=== PATIENT | female | born 1975 | race Caucasian/White ===

== ENCOUNTER 2017-10-16 20:13 | Emergency (ER) | payer SELFPAY ==
[2017-10-16 21:28] LABS: #Basophils 0.1 thou/uL (0.0-0.2); #Eosinphils 0.1 thou/uL (0.0-0.7); #Monocytes 0.5 thou/uL (0.11-0.59); #Neutrophils 3.4 thou/uL (1.40-6.50); %Basophils 1.5 % (0.0-1.0); %Eosinophils 1.8 % (0.0-10.0); %Lymphocytes 32.6 % (21.0-51.0); %Monocytes 8.6 % (0.0-10.0); %Neutrophils 55.5 % (42.0-75.0); Hemoglobin 12.3 g/dL (12.0-16.0); Mean Corpuscular HGB CONC 32.8 g/dL (32.0-36.0); Mean Corpuscular Hemoglobin 29.8 pg (27.0-31.0); Mean Platelet Volume 7.9 fL (7.4-10.4); Platelet Count 299 thou/uL (130-400); Red Blood Cell (RBC) Count 4.13 mill/uL (4.20-5.40); White Blood Cell (WBC) Count 6.1 thou/uL (4.8-10.8)
[2017-10-16 21:49] LABS: ALT (SGPT) 8 U/L (8-55); AST (SGOT) 16 U/L (5-34); Albumin 4.5 g/dL (3.5-5.0); Alkaline Phosphatase 74 U/L (40-150); Anion Gap 14 mmol/L (10-20); BUN (Urea Nitrogen) 8 mg/dL (7.0-18.7); Bilirubin, Total 0.2 mg/dL (0.2-1.2); Calc. Creatinine Clearance 0 mL/min (70-130); Calcium 10.1 mg/dL (7.8-10.44); Carbon Dioxide 27 mmol/L (22-29); Chloride 102 mmol/L (98-107); Estimated GFR-MDRD 83; Globulin 3.2 g/dL (2.4-3.5); Glucose 87 mg/dL (70-105); Lipase 9 U/L (8-78); Protein, Total 7.7 g/dL (6.0-8.3); Sodium 139 mmol/L (136-145)
[2017-10-16 21:52] LABS: Bilirubin Negative (Negative); Blood, Urine Negative (Negative); Clarity CLEAR (Clear); Glucose, Urine (Dipstick) Negative (Negative); Leukocyte Negative (Negative); Nitrite Negative (Negative); Protein, Urine (Dipstick) Negative (Neg-Trace); Specific Gravity, Urine 1.012 (1.002-1.036); Urobilinogen 0.2 mg/dL (0.2-1.0); pH, Urine 6.5 (5.0-9.0)
[2017-10-16 23:23] LABS: BHCG - Serum Negative (NEGATIVE); Pregs Control Background? CLEAR/WHITE (CLR/WHITE); Pregs Control Bar Appear? YES (CONTROL BAR)
[2017-10-17 00:02] LABS: Pregnancy Test - Urine (BHCG) Negative (Negative); Pregu Control Background? CLEAR/WHITE (CLR/WHITE); Pregu Control Bar Appear? YES (CONTROL BAR); Specific Gravity 1.012 (1.002-1.036)
--- NOTE | 2017-10-17 08:17 | ULT ---
PRELIMINARY REPORT/[facility]/EMERGENCY AFTER HOURS PROCEDURE: EXAM: US Abdomen Limited, Right Upper Quadrant EXAM DATE/TIME: 10/16/2017 11:54 PM CLINICAL HISTORY: 41 years old, female; Pain and signs and symptoms; Nausea; Abdominal pain; Localized; Right upper litzy drant (ruq) TECHNIQUE: Real-time ultrasound of the right upper quadrant with image documentation. COMPARISON: No relevant prior studies available. FINDINGS: Liver: Liver is normal in length with normal echogenicity. Normal appearing main portal vein flow. No intrahepatic bile duct dilation. Gallbladder: Gallbladder does not appear to contain stones. No evidence of gallbladder wall thickenin g. No evidence of pericholecystic fluid. Common bile duct: Common bile duct is normal in width at 2 mm. No stones. No dilation. Pancreas: Visualized portions of the pancreas appear normal. Right kidney: Right kidney appears normal. No stones. No hydronephrosis. Free fluid: No evidence of free fluid. IMPRESSION: No evidence gallstones, biliary ductal dilatation, gallbladder wall thickening or pericholecystic flu id. Thank you for allowing us to participate in the care of your patient. Dictated and Authenticated by: Lyssa Fatima MD 10/17/2017 12:36 AM Central Time ([place] & [place]) FINAL REPORT EMERGENT AFTER HOURS RIGHT UPPER QUADRANT ULTARSOUND: DATE: 10/16/17. HISTORY: Right upper quadrant abdominal pain and nausea. IMPRESSION: 1. No acute findings are seen on this right upper quadrant abdominal ultrasound examination. 2. No gallbladder calculi are seen, and the common duct is normal in caliber measuring 0.2 cm in shanel meter. 3. Findings are in agreement with the preliminary report by [facility]. POS: [facility]
--- NOTE | 2017-11-15 15:06 | EKG ---
Test Reason : EPIGASTRIC PAIN Blood Pressure : / mmHG Vent. Rate : 078 BPM Atrial Rate : 078 BPM P-R Int : 158 ms QRS Dur : 082 ms QT Int : 388 ms P-R-T Axes : 052 060 029 degrees QTc Int : 442 ms Sinus rhythm with Premature ventricular complexes or Fusion complexes Otherwise normal ECG Confirmed by ANDERSON WRAY, SHUKRI ([id number]), news copy editor BETO GARCIA ([id number]) on 11/15/2017 3:06:40 PM Referred By: Confirmed By:SHUKRI BARRON MD
== END 2017-10-17 01:07 | disposition home or self-care (01) ==
LOC: ERS 20:13
DX: R10.11 Right upper quadrant pain (principal); F17.210 Nicotine dependence, cigarettes, uncomplicated
CPT/HCPCS: 36415; 76705; 80053; 81003; 81025; 83690; 84703; 85025; 93005

== ENCOUNTER 2018-09-18 13:24 | Emergency (ER) | payer SELFPAY ==
[2018-09-18] MEDS ORDERED: Dexamethasone 10 MG/ML VIAL ONE (14:13)
--- NOTE | 2018-09-18 14:38 | RAD ---
CHEST TWO VIEWS: 09/18/2018 HISTORY: Sore throat. Headache. Rhinorrhea. Cough. COMPARISON: None. FINDINGS: No pneumothorax, pleural fluid, focal consolidation, or alveolar edema. Heart and mediastinal contou rs appear grossly unremarkable. IMPRESSION: No acute findings. POS: [facility]
== END 2018-09-18 14:48 | disposition home or self-care (01) ==
LOC: ERS 13:24
DX: J02.9 Acute pharyngitis, unspecified (principal); F17.210 Nicotine dependence, cigarettes, uncomplicated
CPT/HCPCS: 71046; J1100

== ENCOUNTER 2019-06-29 20:05 | Emergency (ER) | payer SELFPAY ==
[2019-06-29] MEDS ORDERED: Morphine 4 MG/ML VIAL ONE (21:00)
[2019-06-29] MEDS ORDERED: Ondansetron PF 4 MG/2 ML Vial ONE (21:00)
[2019-06-29 22:32] LABS: #Eosinphils 0.1 thou/uL (0.0-0.7); #Lymphocytes 1.6 thou/uL (1.20-3.40); #Monocytes 0.5 thou/uL (0.11-0.59); #Neutrophils 5.9 thou/uL (1.40-6.50); %Basophils 0.3 % (0.0-1.0); %Eosinophils 0.7 % (0.0-10.0); %Lymphocytes 19.8 % (21.0-51.0); %Monocytes 6.5 % (0.0-10.0); %Neutrophils 72.7 % (42.0-75.0); Hemoglobin 8.2 g/dL (12.0-16.0); Mean Corpuscular HGB CONC 30.3 g/dL (32.0-36.0); Mean Corpuscular Hemoglobin 22.8 pg (27.0-31.0); Mean Corpuscular Volume 75.2 fL (78.0-98.0); Mean Platelet Volume 8.5 fL (7.4-10.4); Platelet Count 375 thou/uL (130-400); RBC Distribution Width 18.3 % (11.5-14.5); Red Blood Cell (RBC) Count 3.59 mill/uL (4.20-5.40); White Blood Cell (WBC) Count 8.1 thou/uL (4.8-10.8)
== END 2019-06-29 23:02 | disposition home or self-care (01) ==
LOC: ERS 20:05
DX: R55 Syncope and collapse (principal); N85.8 Other specified noninflammatory disorders of uterus; D50.9 Iron deficiency anemia, unspecified; R11.2 Nausea with vomiting, unspecified; F17.210 Nicotine dependence, cigarettes, uncomplicated; Z79.899 Other long term (current) drug therapy
CPT/HCPCS: 36415; 85025; 96374; 96375; J2270; J2405